=== PATIENT | male | born 1970 | race Caucasian/White ===

== ENCOUNTER 2020-08-20 22:41 | Observation (INO) ==
[2020-08-20 23:04] LABS: Basophils # 0.1 10*3/uL (0.0-0.2); Basophils % 0.9 % (0.0-0.8); Eosinophils # 0.5 10*3/uL (0.0-0.87); Eosinophils % 5.5 % (0.00-10.9); Hematocrit 49.6 VOL% (42.0-52.0); Hemoglobin 16.6 GM/DL (14.0-18.0); Immature Granulocytes % 0.5 %; Immature Granulocytes Absolute 0.05 #; Lymphocytes # 3.2 10*3/uL (1.4-4.0); Lymphocytes % 34.3 % (21.2-54.2); Mean Corpuscular HGB Conc 33.5 GM/DL (32-36); Mean Corpuscular Volume 97.4 FL (87-102); Mean Platelet Volume 9.8 FL (9.6-12.0); Monocytes % 8.4 % (1.7-12.7); Neutrophils % 50.4 % (38.7-73.9); Platelet Count 246 T/CUMM (130-400); Red Blood Count 5.09 MC/CUMM (3.8-5.5); Red Cell Distribution Width 12.6 % (9.3-17.3); White Blood Count 9.3 T/CUMM (4-12)
[2020-08-20 23:24] LABS: Albumin 3.8 G/DL (3.4-5.0); Bilirubin,Total 1.2 MG/DL (0.2-1.0); Calcium 8.7 MG/DL (8.5-10.1); Osmolality,Calculated 283.7 MOS/KG (273-304); Total Protein 7.2 G/DL (6.4-8.3)
[2020-08-21] MEDS ORDERED: ASPIRIN 325 MG TABLET PO STA (00:06)
[2020-08-21] MEDS ORDERED: ONDANSETRON 4 MG/2 ML VIAL IV STA (00:06)
[2020-08-21] MEDS ORDERED: MORPHINE 4 MG/1 ML VIAL IV STA (00:06)
[2020-08-21] MEDS ORDERED: NITROGLYCERIN 2% OINT 1 INCH/GM PACK TOP STA (00:06)
[2020-08-21] MEDS ORDERED: ENOXAPARIN 100 MG/ML SYRINGE SUBCUT STA (00:12)
[2020-08-21] MEDS ORDERED: BISACODYL 5 MG TABLET PO PRN (01:05)
[2020-08-21] MEDS ORDERED: DOCUSATE SODIUM 100 MG CAPSULE PO PRN (01:05)
[2020-08-21] MEDS ORDERED: DEXTROSE 50% 25 GM/50 ML VIAL IV PRN ×2 (01:05)
[2020-08-21] MEDS ORDERED: ONDANSETRON 4 MG/2 ML VIAL IV PRN (01:05)
[2020-08-21] MEDS ORDERED: GLUCAGON 1 MG VIAL IM PRN ×2 (01:05)
[2020-08-21] MEDS ORDERED: MORPHINE 4 MG/1 ML VIAL IV PRN (01:11)
[2020-08-21] MEDS ORDERED: ENOXAPARIN 120 MG/0.8 ML SYRINGE SUBCUT SCH ×2 (01:30→21:00)
[2020-08-21] MEDS ORDERED: NICOTINE 21 MG/24 HR PATCH TRANSDERM PRN (01:36)
[2020-08-21 01:42] LABS: Risk Ratio 4.5; VLDL CHOLESTEROL 21.2 MG/DL
[2020-08-21 06:12] LABS: Albumin 3.2 G/DL (3.4-5.0); Bilirubin,Total 1.2 MG/DL (0.2-1.0); Calcium 8.2 MG/DL (8.5-10.1); Osmolality,Calculated 281.5 MOS/KG (273-304); Total Protein 6.4 G/DL (6.4-8.3)
[2020-08-21] MEDS ORDERED: ENOXAPARIN 40 MG/0.4 ML SYRINGE SUBCUT SCH (07:30)
[2020-08-21] MEDS ORDERED: INSULIN LISPRO 100 UNIT/ML SUBCUT SCH (07:30)
[2020-08-21 08:41] VITALS: BP 95/53
[2020-08-21] MEDS ORDERED: ASPIRIN EC 81 MG TABLET PO SCH (09:00)
[2020-08-21] MEDS ORDERED: TAMSULOSIN 0.4 MG CAPSULE PO SCH (09:00)
[2020-08-21] MEDS ORDERED: LOSARTAN 25 MG TABLET PO SCH (09:00)
[2020-08-21] MEDS ORDERED: ASPIRIN CHEW 81 MG TABLET PO SCH (09:00)
[2020-08-21] MEDS ORDERED: INSULIN GLARGINE 100 UNIT/ML SUBCUT SCH (21:00)
[2020-08-21] MEDS ORDERED: ROSUVASTATIN 20 MG TABLET PO SCH (21:00)
== END 2020-08-21 11:23 | disposition home or self-care (01) ==
LOC: N.ED 22:41 → N.EDINP 22:41 → N.TELES 08-21 03:05
PROVIDERS: ADMIT Internal Medicine; ATTEND Internal Medicine